=== PATIENT | female | born 1985 | race Caucasian/White ===

== ENCOUNTER 2017-05-06 14:09 | Emergency (ER) | payer OTHER ==
[~2017-05-06] VITALS: Ht 165.1 cm; Wt 56.7 kg
[2017-05-06] MEDS ORDERED: LAMICTAL100 MG PO (14:24)
[2017-05-06] MEDS ORDERED: XANAX1 MG PO (14:24)
[2017-05-06] MEDS ORDERED: PAMELOR75 MG PO (14:26)
[2017-05-06] MEDS ORDERED: FLEXERIL PO (16:28)
[2017-05-06] MEDS ORDERED: IBUPROFEN 800800 M1 PO (16:28)
[2017-05-06 17:00] VITALS: BP 110/74
== END 2017-05-06 16:29 | disposition home or self-care (01) ==
LOC: ER 14:09
DX: S16.1XXA Strain of muscle, fascia and tendon at neck level, initial encounter (principal); S29.012A Strain of muscle and tendon of back wall of thorax, initial encounter; F41.9 Anxiety disorder, unspecified; F31.9 Bipolar disorder, unspecified; J45.909 Unspecified asthma, uncomplicated; F17.210 Nicotine dependence, cigarettes, uncomplicated; F10.99 Alcohol use, unspecified with unspecified alcohol-induced disorder; V43.62XA Car passenger injured in collision with other type car in traffic accident, initial encounter; Y93.89 Activity, other specified; Y92.89 Other specified places as the place of occurrence of the external cause; Y99.8 Other external cause status